=== PATIENT | female | born 1945 | race Caucasian/White ===

== ENCOUNTER → 2024-07-18 | Outpatient (CLI) | payer MEDICARE ==
--- NOTE | 2024-07-18 15:57 | HMCIMG ---
MR BRAIN WO CON HISTORY: Dementia COMPARISON: None TECHNIQUE: MRI of the brain was performed utilizing multiple pulse sequences in axial, coronal and sagittal planes. Patient was not given contrast through intravenous route. FINDINGS: The ventricles and extraventricular CSF spaces are dilated consistent with cerebral atrophy. Nonspecific white matter changes are seen. There is no midline shift, mass effect or herniation. No subacute hemorrhage is seen. No MR evidence of acute infarct is seen in the diffusion weighted images. Cerebellar tonsils are in normal position. No evidence of mucoperiosteal thickening is seen of the visualized paranasal sinuses. No MR evidence of a mass lesion is seen in this noncontrast study. IMPRESSION: 1. No MR evidence of acute infarct is seen in the diffusion weighted images. Atrophy or white matter changes.
== END | disposition home or self-care (01) ==
LOC: RAH 14:39
PROVIDERS: ATTEND Psychiatry & Neurology Neurology
DX: G93.89 Other specified disorders of brain (principal); G30.9 Alzheimer's disease, unspecified; F02.80 Dementia in other diseases classified elsewhere, unspecified severity, without behavioral disturbance, psychotic disturbance, mood disturbance, and anxiety
CPT/HCPCS: 70551

== ENCOUNTER → 2024-11-25 | Outpatient (CLI) | payer MEDICARE ==
--- NOTE | 2024-11-25 10:50 | HMCIMG ---
MR BRAIN WO CON HISTORY: Dementia COMPARISON: None TECHNIQUE: MRI of the brain was performed utilizing multiple pulse sequences in axial, coronal and sagittal planes. Patient was not given contrast through intravenous route. FINDINGS: The ventricles and extraventricular CSF spaces are dilated consistent with cerebral atrophy. Nonspecific white matter changes are seen. There is no midline shift, mass effect or herniation. No subacute hemorrhage is seen. No MR evidence of acute infarct is seen in the diffusion weighted images. Cerebellar tonsils are in normal position. No evidence of mucoperiosteal thickening is seen of the visualized paranasal sinuses. No MR evidence of a mass lesion is seen in this noncontrast study. IMPRESSION: 1. No MR evidence of acute infarct is seen in the diffusion weighted images. Atrophy with white matter changes.
== END | disposition home or self-care (01) ==
LOC: RAH 09:41
PROVIDERS: ATTEND Psychiatry & Neurology Neurology
DX: G30.9 Alzheimer's disease, unspecified (principal); G93.89 Other specified disorders of brain; G31.9 Degenerative disease of nervous system, unspecified; R90.82 White matter disease, unspecified; F02.80 Dementia in other diseases classified elsewhere, unspecified severity, without behavioral disturbance, psychotic disturbance, mood disturbance, and anxiety
CPT/HCPCS: 70551

== ENCOUNTER → 2024-12-09 | Outpatient (CLI) | payer MEDICARE ==
--- NOTE | 2024-12-09 21:56 | HMCIMG ---
EXAM: MR Brain Without IV Contrast CLINICAL HISTORY: Alzheimer's disease. TECHNIQUE: Multiplanar multi-sequence MRI of the brain. CONTRAST: No. COMPARISON: MRI dated 11/25/24. FINDINGS: Discrete and confluent T2, FLAIR hyperintense signal noted in the white matter of bilateral cerebral hemispheres, likely chronic small vessel ischemic changes. No evidence of acute cortical infarction, hemorrhage, mass or mass effect. The ventricular system is normal in size, shape, and contour. No hydrocephalus. No abnormal extra-axial fluid collection is present. The marrow signal within the skull base and calvarium is intact. The paranasal sinuses and mastoid air cells are clear. Bilateral intraocular lens implants in situ. IMPRESSION: No acute intracranial abnormality or mass. Moderate chronic small vessel ischemic changes. No significant interval changes. /[place]
== END | disposition home or self-care (01) ==
LOC: RAH 12:59
PROVIDERS: ATTEND Psychiatry & Neurology Neurology
DX: I67.82 Cerebral ischemia (principal); G30.9 Alzheimer's disease, unspecified; F02.80 Dementia in other diseases classified elsewhere, unspecified severity, without behavioral disturbance, psychotic disturbance, mood disturbance, and anxiety
CPT/HCPCS: 70551

== ENCOUNTER → 2025-01-31 | Outpatient (CLI) | payer MEDICARE ==
--- NOTE | 2025-01-31 19:48 | HMCIMG ---
EXAM: MR Brain Without IV contrast. CLINICAL HISTORY: G30.9 Alzheimer's disease, unspecified TECHNIQUE: Multisequence, multiplanar magnetic resonance images acquired of the brain. Series acquired: 4 - AX T2 FSE - TR: 5739.0 - TE: 105.7 - ET: 24.0 - Thk: 5.0 5 - AX T2 FLAIR - TR: 17627.0 - TE: 92.1 - ET: 16.0 - Thk: 5.0 6 - AX DWI - TR: 4826.0 - TE: 76.8 - ET: 1.0 - Thk: 5.0 7 - AX T2* GRE (TRAUMA OR BLEED) - TR: 516.7 - TE: 10.0 - ET: 1.0 - Thk: 5.0 8 - AX T1 FSE - TR: 473.0 - TE: 9.1 - ET: 3.0 - Thk: 5.0 9 - COR T2 FSE - TR: 6076.0 - TE: 107.0 - ET: 18.0 - Thk: 5.0 CONTRAST: None. COMPARISON: MR dated 12/09/24. FINDINGS: BRAIN: No restricted diffusion to indicate acute infarction. No intracranial mass or hemorrhage. . Periventricular white matter changes felt secondary to chronic microangiopathy No midline shift or extra-axial fluid collection. No sulcal effacement. No cerebellar tonsillar ectopia. The central arterial and venous flow voids are patent. VENTRICLES: No hydrocephalus. ORBITS: The orbits are normal. SINUSES AND MASTOIDS: The sinuses and mastoid air cells are clear. BONES: No focal osseous lesion. IMPRESSION: Angiopathy. Chronic microangiopathy. Finding similar December 09, 2024 /[place]
== END | disposition home or self-care (01) ==
LOC: RAH 13:29
PROVIDERS: ATTEND Psychiatry & Neurology Neurology
DX: G30.9 Alzheimer's disease, unspecified (principal); I99.9 Unspecified disorder of circulatory system; F02.80 Dementia in other diseases classified elsewhere, unspecified severity, without behavioral disturbance, psychotic disturbance, mood disturbance, and anxiety; Z15.89 Genetic susceptibility to other disease
CPT/HCPCS: 70551